=== PATIENT | female | born 1940 | race Caucasian/White ===

== ENCOUNTER 2017-02-02 18:42 | Observation (INO) | payer MEDICARE ==
[~2017-02-02] VITALS: Ht 162.6 cm; Wt 72.5 kg
[~2017-02-02 18:42] MED LIST: FEXO-106 PO; FLUO20CA25 PO; LEVO100T6 PO; MAGN100T6 PO; MULT-1018 PO; OMEP20TA86 PO; VIT1CAPS7 PO
[2017-02-02 18:46] VITALS: BP 142/85; PULSE 80; RESP 18; O2SAT 100
--- NOTE | 2017-02-02 19:16 | ED.REPORT ---
HPI-Abd Pain F 40 and Over Date of Service Feb 02, 2017 ED Provider: Solomon Medley MD Patient is a 77 year old female with a hx of breast cancer, hypothyroid, and GERD who presents to the ED complaining of severe, cramping, abdominal pain onset this afternoon but has since subsided. Patient has been eating differently due to a colonoscopy scheduled 3 days from today but she has not started the prep. Associated symptoms include diarrhea x1, nausea, tenesmus, and cold sweats. Her last BM was a few days ago. She denies vomiting, fever, hematochezia, hematemesis, SOB, or any other symptoms. She was worked up earlier at and was diagnosed with pneumonia. She started her abx (Levaquin) at 1400 today. Nursing Notes Stated Complaint: ABDOMINAL PAIN Chief Complaint: Female Abdominal Pain Nursing Notes Reviewed: Yes Allergies: Coded Allergies: Penicillins (Verified Allergy, Severe, ANAPHYLAXIS, 02/02/17) ascorbic acid (Unverified Allergy, Unknown, UNKNOWN, 02/02/17) hydrocodone (Verified Allergy, Unknown, 02/02/17) selenium sulfide (Unverified Allergy, Unknown, UNKNOWN, 02/02/17) Uncoded Allergies: WALNUTS,PECANS,SPINACH,BRAZIL NUTS (Allergy, Severe, RESPITORY DISTRESS, ) BROMLAINS (Allergy, Unknown, UNKNOWN, 03/17/14) GLUTAMINE (Allergy, Unknown, UNKNOWN, 03/17/14) QUERCETIN (Allergy, Unknown, UNKNOWN, 03/17/14) Scheduled Fexofenadine (Fexofenadine) 180 Mg Tablet 180 MG PO DAILY Fluoxetine (Fluoxetine) 20 Mg Capsule 20 MG PO DAILY Levothyroxine (Levothyroxine) 100 Mcg Tablet 100 MCG PO DAILY Magnesium Citrate (Magnesium Citrate) 100 Mg Tablet 100 MG PO DAILY Multivitamin (Multi Vitamin Daily) 1 Each Tablet 1 EACH PO DAILY Omeprazole (Omeprazole) 20 Mg Tablet.dr 20 MG PO DAILY Vit C/E/Zn/Coppr/Lutein/Zeaxan (Ocuvite Lutein & Zeaxanthin Cp) 1 Each Capsule 1 EACH PO DAILY General Time Seen by MD: 19:06 Chief Complaint Abdominal pain Hx Obtained From: Patient, Other family... Arrived By: Walk-in Sudden in Onset?: Yes Onset Occurred: 1 - 4 hours ago Context of Onset: New medication Symptom Duration: Since onset Location: : Diffuse Quality: Cramping Severity: Current: No pain currently Severity: Maximum: Severe Recent Healthcare: Recent doctor visit Risk Factors )( AAA Risk Stratification No Hypertension, No Smoking Risk factors reviewed Past Medical History Past Medical History breast cancer 2014 Hypothyroid GERD Depression Past Surgical History left ankle, bilateral mastecotomy Reports: Appendectomy, Hysterectomy, Tonsillectomy Smoking History Former Smoker Social History Other Social History: Good social support Occupation lives by self Ambulatory Status Independent Review of Systems +cold sweats Constitutional: Denies: Fever Respiratory: Denies: Shortness of breath GI: Reports: Abdominal pain, Diarrhea, Nausea, Denies: Hematemesis, Hematochezia, Vomiting Complete sys rev & neg: except as marked. Physical Exam Vital Signs Vital Signs (First) Date Time Temp Pulse Resp B/P Pulse Ox O2 Delivery O2 Flow Rate FiO2 02/02/17 18:46 36.4 80 18 142/85 100 Room Air Initial VS: Reviewed, Vital signs abnormal Head / Eyes: Atraumatic, Normocephalic Neck: Full range of motion Skin: Warm, Dry Neurologic: Alert, Oriented, Nonfocal Psychiatric: Mood/affect normal, Behavior normal, Normal thought content General/Constitutional: Awake, Alert, No acute distress Respiratory / Chest: Atraumatic, Breath sounds NL, Breath sounds = bilat, No respiratory distress Cardiovascular: Heart rate NL, Regular rhythm, Heart sounds NL, No gallop, No murmurs, No rubs Abdomen: Atraumatic, Soft, BS normoactive Midline surgical scar Diffusely tender Back: Full range of motion, No CVA tenderness Rectum / Perineum: No gross blood Non-tender, no stool in vault, guaiac negative Interpretation & Diagnostics Lab Results Interpretation Result Diagram: 02/02/17200302/02/172003 Test 02/02/17 20:04 02/02/17 22:04 White Blood Count 14.8th/mm3 (3.8-10.1) Red Blood Count 4.66mil/mm3 (3.90-5.20) Hemoglobin 13.5g/dL (12.0-15.6) Hematocrit 39.3% (35.0-46.0) Mean Corpuscular Volume 84.3fL (81-100) Mean Corpuscular Hemoglobin 29.0pg (27.0-35.0) Mean Corpuscular Hemoglobin Concent 34.4% (32.0-37.0) Red Cell Distribution Width 13.9% (12.3-15.4) Platelet Count 352bil/L (150-400) Neutrophils (%) (Auto) 85.2% (40-74) Lymphocytes (%) (Auto) 4.1% (14-46) Monocytes (%) (Auto) 10.2% (4-12) Eosinophils (%) (Auto) 0.1% (0-5) Basophils (%) (Auto) 0.1% (0-3) Sodium Level 127mEq/L (134-144) Potassium Level 5.2mEq/L (3.5-5.2) Chloride Level 88mEq/L (97-108) Carbon Dioxide Level 22mmol/L (18-29) Blood Urea Nitrogen 13mg/dL (8-27) Creatinine 0.49mg/dL (0.57-1.00) Estimat Glomerular Filtration Rate 176mL/min (>59) Glucose Level 117mg/dL (60-99) Calcium Level 9.2mg/dL (8.5-10.1) Magnesium Level 2.0mg/dL (1.6-2.6) Total Bilirubin 0.6mg/dL (0.0-1.2) Aspartate Amino Transf (AST/SGOT) 32U/L (0-50) Alanine Aminotransferase (ALT/SGPT) 14U/L (0-32) Alkaline Phosphatase 85U/L (25-165) Total Protein 8.2g/dL (6.4-8.4) Albumin 4.2g/dL (3.4-5.0) Lipase 18U/L (13-60) Hold Bruno Top Tube Received (Received) Urine Color Yellow (YELLOW) Urine Appearance Clear (CLEAR,HAZY) Urine pH 6.0 (5.0-8.0) Urine Specific [place] 1.015 (1.003-1.035) Urine Protein Negativemg/dL (NEG,TRACE) Urine Glucose (UA) Negativemg/dL (NEGATIVE) Urine Ketones 15mg/dL (NEGATIVE) Urine Occult Blood Trace (NEGATIVE) Urine Nitrite Negative (NEGATIVE) Urine Bilirubin Negative (NEGATIVE) Urine Urobilinogen 1.0mg/dL (NORMAL) Urine Leukocyte Esterase Trace (NEGATIVE) Urine RBC 0-2/hpf (0-2) Urine WBC 6-10/hpf (0-5) Urine Epithelial Cells Occasional/hpf (NONE-MOD) Urine Crystals None seen (NONE SEEN) Urine Bacteria Few/hpf (NONE-FEW) Urine Hyaline Casts None/lpf (NONE) Urine Granular Casts None seen (NONE SEEN) Urine Waxy Casts None seen (NONE SEEN) Urine Red Blood Cell Casts None seen (NONE SEEN) Urine White Blood Cell Casts None seen (NONE SEEN) Urine Mucus Present (None Seen) Urine Trichomonas None seen (NONE SEEN) Urine Yeast None (NONE SEEN) Urinalysis Comment None Urine Culture Reflexed Indicated CT Abd / Pelvis Interpretation CONCLUSION: Findings suggest early/partial bowel obstruction, with transition in the anterior R upper pelvis, likely due to adhesions. Acute enteritis or ileus are left to be less likely. Radiologist: Pia Delatorre M.D. Study type: Abdominal CT IV contrast Interpretation / Wet Read by: Interpret - Radiologist Re-Eval/Medical Decision Med Decision/Clinical Course 77-year-old female with diffuse crampy abdominal pain and findings for a bowel obstruction on CT of abdomen and pelvis. Symptoms began shortly after she took her first dose of Levaquin which was prescribed at urgent care for a pneumonia. Also is noted to have significant pyuria. Pain improved here in the emergency department she was given normal saline 1 L. He felt nothing by mouth, given Rocephin 2 g IV plan to admit to the hospitalist service on observation status for IV hydration and bowel rest. It may be that her symptoms are related to taking Levaquin however given the findings on imaging will manage her as a bowel obstruction. Re-Evaluation/Progress : Time of Eval: 23:45 )( Re-Eval Abdomen: Soft Re-Evaluation/Progress Note: Rechecked pt. Discussed CT results. Discussed plan for admission. Patient understands and agrees with plan. All questions addressed at this time. Patient reports passing very little gas. Discussed pt's code status. Pt is FULL CODE. 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 Accepts admit. Counseled Regarding: Diagnosis, Lab results, Need for admission Discharge & Departure Primary Impression: Bowel obstruction Intestinal obstruction type: unspecified Qualified Code: K56.60 - Unspecified intestinal obstruction Additional Impression: UTI (urinary tract infection) Urinary tract infection type: site unspecified Hematuria presence: without hematuria Qualified Code: N39.0 - Urinary tract infection, site not specified Disposition: ADMITTED TO HOSPITAL Discharge Condition All VS Reviewed: Yes Condition: Stable Referrals: Delvin Monaco MD (PCP) Akilibshobha Attestation Portions of this note were transcribed by Angelika Escoto. I, Dr. Medley personally performed the history, physical exam and medical decision-making; I reviewed and confirmed the accuracy of the information in the transcribed note. Signed by: Ana Luisa Cerrato, 02/02/17 copies to: Delvin Monaco MD, Donald L MD Feb 02, 2017 19:16 ANGELIKA ESCOTO Feb 02, 2017 19:24
[2017-02-02] MEDS ORDERED: 0.9% Sodium Chloride 1,000 ML IV ONE (19:34)
[2017-02-02] MEDS: HYDROmorphone 0.5 mg/0.5 mL iSecure Syringe IVPUSH PRN ×2 (20:00→22:21)
[2017-02-02] MEDS: Ondansetron 2 mg/mL 2 mL Inj IVPUSH PRN ×2 (20:00→22:21)
[2017-02-02 20:18] LABS: BASOPHILS % (AUTO) 0.1 % (0-3); EOSINOPHILS % (AUTO) 0.1 % (0-5); MONOCYTES % (AUTO) 10.2 % (4-12); Mean Corpuscular Volume 84.3 fL (81-100); NEUTROPHILS % (AUTO) 85.2 % (40-74); Platelet Count 352 bil/L (150-400)
[2017-02-02 21:36] VITALS: BP 119/59; PULSE 75; RESP 13; O2SAT 97
[2017-02-02 22:22] LABS: APPEARANCE,URINE CLEAR (CLEAR,HAZY); COLOR,URINE YELLOW (YELLOW); OCCULT BLOOD,URINE TRACE (NEGATIVE)
[2017-02-03] MEDS ORDERED: cefTRIAXone Inj 2,000 MG in Dextrose 5% Minibag Plus 50 ML IV ONE ×2
[2017-02-03] MEDS ORDERED: 0.9% Sodium Chloride 1,000 ML IV SCH (01:13)
[2017-02-03] MEDS ORDERED: Ondansetron 2 mg/mL 2 mL Inj IVPUSH PRN ×2 (01:15→03:10)
[2017-02-03] MEDS ORDERED: Alum-Mag Hydrox-Simeth 30 mL Suspension PO PRN ×2 (01:15→03:10)
[2017-02-03] MEDS: Ondansetron 2 mg/mL 2 mL Inj IVPUSH PRN (01:25)
[2017-02-03] MEDS: HYDROmorphone 0.5 mg/0.5 mL iSecure Syringe IVPUSH PRN (01:25)
[2017-02-03 01:34] VITALS: BP 100/64; PULSE 60; RESP 16; O2SAT 97
[2017-02-03] MEDS ORDERED: LEVO100T6 PO (02:07)
[2017-02-03] MEDS ORDERED: MULT1CAP33 PO (02:07)
[2017-02-03] MEDS ORDERED: OMEP20CA11 PO (02:07)
[2017-02-03] MEDS ORDERED: FEXO-106 PO (02:07)
[2017-02-03] MEDS ORDERED: FLUO20CA25 PO (02:07)
[2017-02-03] MEDS ORDERED: VIT1CAPS7 PO (02:07)
[2017-02-03] MEDS ORDERED: MAGN100T6 PO (02:07)
--- NOTE | 2017-02-03 02:44 | PCM.HPMED ---
Subjective Date of Service Feb 03, 2017 Primary Provider: Admitting Physician: Vee Waterman DO Primary Care Physician: Delvin Monaco MD Attending Physician: Vee Waterman DO Admit Status: From the Emergency Department Chief Complaint: Cramping Abdominal Pain History of Present Illness: Ms. Pascual is a 77-year-old female with a past medical history significant for breast cancer, hypothyroidism, GERD, depression who presented to the emergency department with complaints of severe cramping abdominal pain that started around 3pm. She reports the pain was throughout her entire abdomen and was a cramping sensation has since resolved. She endorses fatigue, nausea, vomiting, diarrhea throughout the afternoon but denies any fever, chills, bloody stool, shortness of breath. Of note, the patient was seen in urgent care earlier today and diagnosed with possible pneumonia via symptoms, labs, CXR. She was started on levofloxacin and her symptoms started soon after that. A CT of the abdomen was done in the emergency department and revealed the possibility of a developing obstruction, which could be be a cause of her abdominal pain. Review of Systems: A comprehensive review of systems was performed and negative except as in the history of present illness above. Allergies Coded Allergies: Penicillins (Verified Allergy, Severe, ANAPHYLAXIS, 02/02/17) ascorbic acid (Unverified Allergy, Unknown, UNKNOWN, 02/02/17) hydrocodone (Verified Allergy, Unknown, 02/02/17) selenium sulfide (Unverified Allergy, Unknown, UNKNOWN, 02/02/17) Uncoded Allergies: WALNUTS,PECANS,SPINACH,BRAZIL NUTS (Allergy, Severe, RESPITORY DISTRESS, ) BROMLAINS (Allergy, Unknown, UNKNOWN, 03/17/14) GLUTAMINE (Allergy, Unknown, UNKNOWN, 03/17/14) QUERCETIN (Allergy, Unknown, UNKNOWN, 03/17/14) Home Medications Fexofenadine (Fexofenadine) 180 Mg Tablet 180 MG PO DAILY Fluoxetine (Fluoxetine) 20 Mg Capsule 20 MG PO DAILY Levothyroxine (Levothyroxine) 100 Mcg Tablet 100 MCG PO DAILY Magnesium Citrate (Magnesium Citrate) 100 Mg Tablet 100 MG PO DAILY Multivitamin (Multi Vitamin Daily) 1 Each Tablet 1 EACH PO DAILY Omeprazole (Omeprazole) 20 Mg Tablet.dr 20 MG PO DAILY Vit C/E/Zn/Coppr/Lutein/Zeaxan (Ocuvite Lutein & Zeaxanthin Cp) 1 Each Capsule 1 EACH PO DAILY PMH Breast cancer 2014 Hypothyroid GERD Depression Surgical History Left ankle repair Bilateral mastectomy Appendectomy Hysterectomy Tonsillectomy Family History Father and mother both had 'heart problems' Social History Hx Alcohol Use: No (Quit 1 month ago; drank 1 bottle of wine a night for many years) Hx Substance Use: No Hx Tobacco Use: No Smoking Status: Former Smoker Living Arrangement: Alone Exam Vital Signs Vital Sign - Last Date Time Temp Pulse Resp B/P Pulse Ox O2 Delivery O2 Flow Rate FiO2 02/03/17 01:34 36.9 60 16 100/64 97 Room Air Intake and Output 02/02/17 02/02/17 02/03/17 Cumulative From/Thru 14:59 22:59 06:59 02/02/17 18:46 - 02/03/17 01:34 Intake Total 1000 ml 1000 ml Balance 1000 ml 1000 ml Intake IV Total 1000 ml 1000 ml Exam Gen.: Elderly woman lying in bed in no acute distress HEENT: NCAT, PERRLA, EOMI. Membranes pink but dry. Oropharynx without exudate. Neck: Supple, no thyromegaly, JVD. CV: Regular rate and rhythm, no murmurs rubs or gallops. Normal S1 and S2. Pulmonary: Clear to auscultation bilaterally, no wheezes rales or rhonchi. Abd: Soft, nontender, nondistended. Bowel sounds normal throughout. No rebound or guarding. Extremities: No cyanosis, clubbing, edema. Neuro: Cranial nerves II through XII intact. Muscle strength normal in all extremities. No focal deficits. Psych: A&O 3. Normal mood and affect. Lab and Diagnostics Result Diagram: 02/02/17200302/02/172003 Microbiology Urine culture pending X-Rays, CTs and MRIs Abd CT 02/02/17 CONCLUSION: Findings suggest early/partial bowel obstruction, with transition in the anterior R upper pelvis, likely due to adhesions. Acute enteritis or ileus are left to be less likely. Radiologist: Pia Delatorre M.D. Assessment & Plan Ms. Pascual is a 77-year-old female with a past medical history significant for breast cancer, hypothyroidism, GERD, depression who presented to the emergency department with complaints of severe, diffuse, cramping abdominal pain that started earlier this afternoon 02/02. Possible bowel obstruction, present on admission. Acute. Ongoing. - CT of the abdomen showed possible obstruction - Patient will remain NPO - Start Normal saline 100 cc/hour - Day team to consider involving surgery if symptoms return or worsen Anion Gap metabolic acidosis, present on admission. Acute. Ongoing. - Likely due to vomiting, diarrhea, poor oral intake - Normal saline as above - Re-evaluate with a morning CMP Leukocytosis, present on admission. Acute. Ongoing. - Pt diagnosed with pneumonia earlier at Urgent care based on symptoms, CXR vs possibility of enteritis vs stress response from developing obstruction vs. UTI - CT done in the ED shows no effusions, consolidations - pneumonia unlikely - UA has few bacteria, trace LE but did get culture reflexed - Stool PCR ordered for evaluation of enteritis - Lactic Acid ordered - Pt was given 1 dose of Levoquin at , 2g Ceftriaxone in ED - Will discontinue antibiotic therapy at this time; reconsider if WBC stay elevated or symptoms progress/worsen Depression, present on admission. Chronic. -Continue fluoxetine 20 mg daily GERD, present on admission. Chronic. - Continue omeprazole 20 mg daily Hypothyroidism, presently on admission. Chronic. - Continue levothyroxine 100 mcg daily Acetaminophen as needed for mild pain, fever, headache. Bowel regimen as needed. Subcutaneous heparin for DVT prophylaxis. Patient status: Patient is admitted under observation status with likely length of stay <2 midnights due to the severity of presenting symptoms, medical workup , and overall treatment plan. GI Prophylaxis: Proton Pump Inhibitor VTE Prophylaxis: Sub-Q Heparin (Unfractionated) VTE Mechanical Devices: Intermittant Pneumatic CD Resuscitation Status: CPR: Attempt Resuscitation Attending Statement The patient was seen and examined together with house staff on 02/03/2017 and I agree with the history, exam and plan as outlined in the note above. Jorge Licona DO Feb 03, 2017 02:44 Vee Waterman DO Feb 03, 2017 04:49
[2017-02-03] MEDS ORDERED: Polyethylene Glycol (PEG) 17 Gm Powder PO PRN (03:10)
[2017-02-03] MEDS: 0.9% Sodium Chloride 1,000 ML IV SCH ×2 (04:02→15:08)
--- NOTE | 2017-02-03 04:53 | NUR ---
Admit Patient arrived on unit at 0138 able to transfer to bed independently. Daughter at bedside. Patient states hearing aides were left at home. Oriented to room. Alert and oriented able to make needs known. Denies pain and nausea at this time. Care continues.
[2017-02-03 05:08] VITALS: BP_SYST 104; BP_SYST 111; BP_DIAS 66; BP_DIAS 73; PULSE 62; PULSE 99; RESP 18; RESP 20; O2SAT 94; O2SAT 98
[2017-02-03 05:16] LABS: BASOPHILS % (AUTO) 0.1 % (0-3); EOSINOPHILS % (AUTO) 0.6 % (0-5); MONOCYTES % (AUTO) 12.5 % (4-12); Mean Corpuscular Hemoglobin 28.6 pg (27.0-35.0); Mean Corpuscular Volume 85.7 fL (81-100); NEUTROPHILS % (AUTO) 75.9 % (40-74); Platelet Count 287 bil/L (150-400)
[2017-02-03] MEDS ORDERED: Pantoprazole 40 mg ER24 Tablet PO SCH (06:30)
[2017-02-03] MEDS: Heparin 5,000 Unit/mL Inj SUBQ SCH ×2 (07:55→16:07)
--- NOTE | 2017-02-03 09:07 | DRSVH ---
PROCEDURE: CT ABDOMEN AND PELVIS WITH CONTRAST ([id number]) INDICATIONS: 77 year-old woman with abdominal pain. TECHNIQUE: After the administration of oral and intravenous contrast, 5 mm thick sections acquired from the diap hragms to the symphysis. 5 mm thick coronal and sagittal reformats were performed. For radiation do se reduction, the following was used: automated exposure control, adjustment of mA and/or kV accordi ng to patient size. COMPARISON: None. FINDINGS: Image quality: Excellent. ABDOMEN: Lung bases: Lung bases are clear. Heart size is normal. There is a small hiatal hernia. Solid organs: Liver and spleen are normal in size and enhancement. Gallbladder is normal. Biliary system is non-dilated. Pancreas enhances normally. No adrenal nodules. Kidneys are normal in size and enhancement, without hydronephrosis. Peritoneum and bowel: Proximal small bowel loops are mildly distended and filled with fluid measurin g up to 3.1 cm. There is a transitional point in the right lower quadrant, presumably involving the d istal ileum. The terminal ileum is mildly thickened. Mild stranding is noted in the right lower quadr ant adjacent to small distal ileal loops. Stomach, small bowel, and colon loops are normal in caliber . No free air. There is a small amount of free fluid. Nodes and vessels: No retroperitoneal or mesenteric adenopathy. Aorta and inferior vena cava are no rmal in caliber. Miscellaneous: A tiny fat-containing umbilical hernia is noted. PELVIS: Genitourinary: Bladder is semicontracted. Miscellaneous: No inguinal hernias or adenopathy. Bones: No suspicious bony lesions. No vertebral body compression fractures. IMPRESSION: 1. The CT findings are consistent with small bowel obstruction. The transitional point is in the dist al ileum 2. There is mild thickening of the terminal ileum and mild stranding involving distal small bowel loo ps. Differential diagnoses include infectious ileitis versus inflammatory bowel disease. Recommend cl inical correlation. 3. A small amount of ascites. 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 Dictated by: Nyasia Hall M.D. on 02/03/2017 at 8:19 Transcribed by: JAYY on 02/03/2017 at 9:06 Approved by: Nyasia Hall M.D. on 02/03/2017 at 10:57
--- NOTE | 2017-02-03 11:06 | NUR ---
Case Management: MACARENA explained and given to pt. Melissa HANNARN
[2017-02-03] MEDS ORDERED: CALC-140 PO (13:08)
[2017-02-03] MEDS ORDERED: ASCO-294 PO (13:09)
[2017-02-03 15:41] VITALS: BP 107/67; PULSE 88; RESP 16; O2SAT 100
--- NOTE | 2017-02-03 16:49 | NUR ---
Social Work- Initial Assessment/ Readiness for D/C/ Multidisciplinary Rounds Data: See Initial Assessment and Advance Directive Intervention for additional information. Pt discussed in rounds. Pt is likely to discharge in 1-2 days. No SW needs identified in rounds, no SW orders received. Pt is a 77 year old admitted for bowel obstruction per H&P. Pt's insurance is [employer] and [employer]. Pt's PCP is Delvin Monaco MD. Pt's readmit risk score is 4/8 high risk. SW met with pt at bedside regarding discharge plan, SW role explained. Pt alert and oriented x3. Pt's capacity for self-care assessed. Pt resides in a home in [facility]. Pt is independent with ADLs and self-care. Pt uses no DME at baseline. Pt drives. Pt has no history with HH services. Pt has no history with SNF services. Pt has no DPOA on file and SW requested that pt bring in copy of DPOA. Pt reports daughters are DPOA. Pt's daughter Esthela Storey [phone] is designated field contact person related to d/c planning. SW provided Discharge planning Checklist and requested that pt contact AUCTION BLOCK CLERK if needs identified. SW provided phone number and plan on whiteboard. Pt anticipated to d/c home with her daughter to transport via POV. Pt agreeable. SW will continue to follow. Assessment: Pt who is independent at baseline with ADLs and self-care Plan: Pt anticipated to d/c home with her daughters to transport via POV. No d/c needs. SW will continue to follow. ERNESTO Jarrett Addendum: 02/03/17 at 1651 by KUSH SALVADOR Amended: Links added.
--- NOTE | 2017-02-03 16:51 | PCM.DIMED ---
Discharge Instructions Date of Service Feb 03, 2017 Dates of Hospitalization Feb 03, 2017 at 00:24 Discharge Diagnosis Discharge Diagnosis #small bowel obstruction, present on admission. Acute. Resolved #Depression, present on admission. Chronic. #GERD, present on admission. Chronic. #Hypothyroidism, presently on admission. Chronic. Diet Discharge Diet: Other (please continue liquid diet for today and may advance to soft diet tomorrow ,advance as tolerated ) Activity Discharge Activity: Limited until seen by PCP Call your provider Call your provider for: Fever or Chills, Shortness of breath, Bleeding, Chest pain, Vomitting, Excessive diarrhea, Weakness (unilateral) Patient Instructions Patient Instructions You were hospitalized due to small bowel obstruction. Pain resolved. Having bowel movement. Tolerated diet. Please follow-up with PCP in 1 week. Advance diet as tolerated as instructed. no evidence of infection and do not take antibiotics. Follow-up Provider: Devlin Monaco MD Follow-up with PCP in: 1 week Philip Santiago MD Feb 03, 2017 16:51
--- NOTE | 2017-02-03 17:45 | NUR ---
Social Work- Discharge Data: EMR reviewed. Pt to d/c today, discharge orders are active. Pt to d/c home with her daughter to transport via POV. No d/c needs Assessment: Pt who is independent at baseline. Plan: Pt to d/c home with her daughter to transport via POV. No d/c needs ERNESTO Jarrett
--- NOTE | 2017-02-03 18:31 | NUR ---
Discharge: VSS, not on tele, RA O2 sats 100%. Tolerating PO intake, passing gas, medium BM this afternoon. Given care notes r/t SBO, no changes to home meds. IV d/c'd intact. Pt d/c'd home with all personal belongings, daughter providing transport.
--- NOTE | 2017-02-03 20:35 | PCM.DC.MED ---
Discharge Summary Date of Service Feb 03, 2017 Dates of Hospitalization Date of Hospital Admission Feb 03, 2017 at 00:24 Date of Discharge: Feb 03, 2017 Providers: Admitting Physician: Vee Waterman DO Primary Care Physician: Delvin Monaco MD Attending Physician: Philip Santiago MD Diagnosis at Time of Discharge Diagnosis at Time of Discharge #small bowel obstruction, present on admission. Acute. Resolved #Depression, present on admission. Chronic. #GERD, present on admission. Chronic. #Hypothyroidism, presently on admission. Chronic. Procedures ECG 12 Lead PROCEDURE: CT ABDOMEN AND PELVIS WITH CONTRAST ([id number]) INDICATIONS: 77 year-old woman with abdominal pain. TECHNIQUE: After the administration of oral and intravenous contrast, 5 mm thick sections acquired from the diaphragms to the symphysis. 5 mm thick coronal and sagittal reformats were performed. For radiation dose reduction, the following was used : automated exposure control, adjustment of mA and/or kV according to patient size. COMPARISON: None. FINDINGS: Image quality: Excellent. ABDOMEN: Lung bases: Lung bases are clear. Heart size is normal. There is a small hiatal hernia. Solid organs: Liver and spleen are normal in size and enhancement. Gallbladder is normal. Biliary system is non-dilated. Pancreas enhances normally. No adrenal nodules. Kidneys are normal in size and enhancement, without hydronephrosis. Peritoneum and bowel: Proximal small bowel loops are mildly distended and filled with fluid measuring up to 3.1 cm. There is a transitional point in the right lower quadrant, presumably involving the distal ileum. The terminal ileum is mildly thickened. Mild stranding is noted in the right lower quadrant adjacent to small distal ileal loops. Stomach, small bowel, and colon loops are normal in caliber. No free air. There is a small amount of free fluid. Nodes and vessels: No retroperitoneal or mesenteric adenopathy. Aorta and inferior vena cava are normal in caliber. Miscellaneous: A tiny fat-containing umbilical hernia is noted. PELVIS: Genitourinary: Bladder is semicontracted. Miscellaneous: No inguinal hernias or adenopathy. Bones: No suspicious bony lesions. No vertebral body compression fractures. IMPRESSION: 1. The CT findings are consistent with small bowel obstruction. The transitional point is in the distal ileum 2. There is mild thickening of the terminal ileum and mild stranding involving distal small bowel loops. Differential diagnoses include infectious ileitis versus inflammatory bowel disease. Recommend clinical correlation. 3. A small amount of ascites. No significant discrepancy with the cage shift manager radiology preliminary report. Dictated by: Nyasia Hall M.D. on 02/03/2017 at 8:19 Brief History per [facility] Ms. Pascual is a 77-year-old female with a past medical history significant for breast cancer, hypothyroidism, GERD, depression who presented to the emergency department with complaints of severe cramping abdominal pain that started around 3pm. She reports the pain was throughout her entire abdomen and was a cramping sensation has since resolved. She endorses fatigue, nausea, vomiting, diarrhea throughout the afternoon but denies any fever, chills, bloody stool, shortness of breath. Of note, the patient was seen in urgent care earlier today and diagnosed with possible pneumonia via symptoms, labs, CXR. She was started on levofloxacin and her symptoms started soon after that. A CT of the abdomen was done in the emergency department and revealed the possibility of a developing obstruction, which could be be a cause of her abdominal pain. Hospital Course Ms. Pascual is a 77-year-old female with a past medical history significant for breast cancer, hypothyroidism, GERD, depression who presented to the emergency department with complaints of severe, diffuse, cramping abdominal pain that started earlier this afternoon 02/02. # small bowel obstruction, present on admission. Acute. resolved - CT of the abdomen showed possible obstruction - pain resolved,had bowel movement,tolerated diet -treated with npo,Normal saline 100 cc/hour # Leukocytosis, present on admission. Acute. resolved. - Pt diagnosed with pneumonia earlier at Urgent care based on symptoms, CXR vs possibility of enteritis vs stress response from developing obstruction vs. UTI - CT done in the ED shows no effusions, consolidations - pneumonia unlikely - UA has few bacteria, trace LE but did get culture negative - Lactic Acid negative,procal negative - Pt was given 1 dose of Levoquin at , 2g Ceftriaxone in ED.no antibiotic up on discharge # Depression, present on admission. Chronic. -Continue fluoxetine 20 mg daily # GERD, present on admission. Chronic. - Continue omeprazole 20 mg daily Hypothyroidism, presently on admission. Chronic. - Continue levothyroxine 100 mcg daily discharged home advised to follow up with PCP.advance diet as tolerated ,instructions given Exam Vital Signs (Last) Date Time Temp Pulse Resp B/P Pulse Ox O2 Delivery O2 Flow Rate FiO2 02/03/17 15:41 36.8 88 16 107/67 100 Room Air Exam Gen.: Elderly woman lying in bed in no acute distress HEENT: NCAT, PERRLA, EOMI. Membranes pink but dry. Oropharynx without exudate. Neck: Supple, no thyromegaly, JVD. CV: Regular rate and rhythm, no murmurs rubs or gallops. Normal S1 and S2. Pulmonary: Clear to auscultation bilaterally, no wheezes rales or rhonchi. Abd: Soft, nontender, nondistended. Bowel sounds normal throughout. No rebound or guarding. Extremities: No cyanosis, clubbing, edema. Neuro: Cranial nerves II through XII intact. Muscle strength normal in all extremities. No focal deficits. Psych: A&O 3. Normal mood and affect. Test 02/02/17 20:04 02/02/17 22:04 02/03/17 04:55 Magnesium Level 2.0mg/dL (1.6-2.6) Lipase 18U/L (13-60) Hold Bruno Top Tube Received (Received) Urine Color Yellow (YELLOW) Urine Appearance Clear (CLEAR,HAZY) Urine pH 6.0 (5.0-8.0) Urine Specific [place] 1.015 (1.003-1.035) Urine Protein Negativemg/dL (NEG,TRACE) Urine Glucose (UA) Negativemg/dL (NEGATIVE) Urine Ketones 15mg/dL (NEGATIVE) Urine Occult Blood Trace (NEGATIVE) Urine Nitrite Negative (NEGATIVE) Urine Bilirubin Negative (NEGATIVE) Urine Urobilinogen 1.0mg/dL (NORMAL) Urine Leukocyte Esterase Trace (NEGATIVE) Urine RBC 0-2/hpf (0-2) Urine WBC 6-10/hpf (0-5) Urine Epithelial Cells Occasional/hpf (NONE-MOD) Urine Crystals None seen (NONE SEEN) Urine Bacteria Few/hpf (NONE-FEW) Urine Hyaline Casts None/lpf (NONE) Urine Granular Casts None seen (NONE SEEN) Urine Waxy Casts None seen (NONE SEEN) Urine Red Blood Cell Casts None seen (NONE SEEN) Urine White Blood Cell Casts None seen (NONE SEEN) Urine Mucus Present (None Seen) Urine Trichomonas None seen (NONE SEEN) Urine Yeast None (NONE SEEN) Urinalysis Comment None Urine Culture Reflexed Indicated White Blood Count 8.8th/mm3 (3.8-10.1) Red Blood Count 3.70mil/mm3 (3.90-5.20) Hemoglobin 10.6g/dL (12.0-15.6) Hematocrit 31.7% (35.0-46.0) Mean Corpuscular Volume 85.7fL (81-100) Mean Corpuscular Hemoglobin 28.6pg (27.0-35.0) Mean Corpuscular Hemoglobin Concent 33.4% (32.0-37.0) Red Cell Distribution Width 13.8% (12.3-15.4) Platelet Count 287bil/L (150-400) Neutrophils (%) (Auto) 75.9% (40-74) Lymphocytes (%) (Auto) 10.7% (14-46) Monocytes (%) (Auto) 12.5% (4-12) Eosinophils (%) (Auto) 0.6% (0-5) Basophils (%) (Auto) 0.1% (0-3) Sodium Level 134mEq/L (134-144) Potassium Level 4.1mEq/L (3.5-5.2) Chloride Level 98mEq/L (97-108) Carbon Dioxide Level 24mmol/L (18-29) Blood Urea Nitrogen 9mg/dL (8-27) Creatinine 0.50mg/dL (0.57-1.00) Estimat Glomerular Filtration Rate 172mL/min (>59) Glucose Level 113mg/dL (60-99) Lactic Acid Level 0.5mmol/L (0.4-2.0) Calcium Level 8.2mg/dL (8.5-10.1) Total Bilirubin 0.2mg/dL (0.0-1.2) Aspartate Amino Transf (AST/SGOT) 10U/L (0-50) Alanine Aminotransferase (ALT/SGPT) 9U/L (0-32) Alkaline Phosphatase 65U/L (25-165) Total Protein 5.7g/dL (6.4-8.4) Albumin 3.5g/dL (3.4-5.0) Procalcitonin 0.07ng/mL (0.00-0.08) Microbiology Results Urine culture pending Discharge Medications Discharge Medications Ascorbate Calcium (Vitamin C) 500 Mg Tablet 500 MG PO HS (Reported) Calcium Carbonate/Vitamin D3 (Calcium + Vitamin D Tablet) 1 Each Tablet 2 EACH PO BID (Reported) Fexofenadine (Fexofenadine) 180 Mg Tablet 180 MG PO DAILY (Reported) Fluoxetine (Fluoxetine) 20 Mg Capsule 20 MG PO DAILY (Reported) Levothyroxine (Levothyroxine) 100 Mcg Tablet 100 MCG PO DAILY (Reported) Magnesium Citrate (Magnesium Citrate) 100 Mg Tablet 100 MG PO DAILY (Reported) Multivitamin (Multi Vitamin Daily) 1 Each Tablet 1 EACH PO DAILY (Reported) Omeprazole (Omeprazole) 20 Mg Tablet.dr 20 MG PO DAILY (Reported) Vit C/E/Zn/Coppr/Lutein/Zeaxan (Ocuvite Lutein & Zeaxanthin Cp) 1 Each Capsule 1 EACH PO DAILY (Reported) Followup Plan Disposition: home Discharge Diet: Other (please continue liquid diet for today and may advance to soft diet tomorrow ,advance as tolerated ) Discharge Activity: Limited until seen by PCP Patient Instructions You were hospitalized due to small bowel obstruction. Pain resolved. Having bowel movement. Tolerated diet. Please follow-up with PCP in 1 week. Advance diet as tolerated as instructed. no evidence of infection and do not take antibiotics. Follow-up Provider: Delvin Monaco MD Follow-up with PCP in: 1 week copies to: Delvin Monaco MD, Melaku MD Feb 03, 2017 20:35
[2017-02-03] MEDS ORDERED: cefTRIAXone Inj 1,000 MG in Dextrose 5% Minibag Plus 50 ML IV SCH (23:30)
--- NOTE | 2017-02-05 16:29 | DRSVH ---
PROCEDURE: X-RAY ABDOMEN, ONE VIEW ([id number]) INDICATIONS: partial KARSTEN ,follow up TECHNIQUE: One view of the abdomen acquired. COMPARISON: [facility], CT, CT ABD PELVIS W CON, 02/02/2017, 22:07. FINDINGS: Surgical changes and devices: None. Bowel: Stool present within the left colon otherwise bowel gas pattern appears normal. There is smal l amount of residual contrast from prior CT scan. Soft tissues: No suspicious abdominal calcifications. Visualized solid organ contours appear normal in size. Bones: No suspicious bony lesions. IMPRESSION: Stool present within the left colon otherwise normal bowel gas pattern. Dictated by: Gucci HENDRICKS Interpreted: Victor Hugo Heller MD on 02/03/2017 at 10:57 Transcribed by: BRINDA on 02/05/2017 at 16:06 Approved by: Victor Hugo Heller M.D. on 02/06/2017 at 17:27
== END 2017-02-03 17:56 | disposition home or self-care (01) ==
LOC: SED 18:42 → OSC 02-03 00:24
PROVIDERS: ADMIT Internal Medicine; ATTEND Internal Medicine
DX: K56.69 Other intestinal obstruction (principal); D72.829 Elevated white blood cell count, unspecified; E87.2 Acidosis; F32.9 Major depressive disorder, single episode, unspecified; K21.9 Gastro-esophageal reflux disease without esophagitis; E03.9 Hypothyroidism, unspecified; Z85.3 Personal history of malignant neoplasm of breast; Z88.0 Allergy status to penicillin; Z88.8 Allergy status to other drugs, medicaments and biological substances; Z90.710 Acquired absence of both cervix and uterus; Z87.891 Personal history of nicotine dependence; R10.9 Unspecified abdominal pain
CPT/HCPCS: 36415; 74000; 74177; 80053; 81000; 83605; 83690; 83735; 84145; 85025; 87086; 96365; 96372; 96375; 96376; 99285; G0378; J0696; J1170; J1644; J2405; J7030; Q9967